=== PATIENT | male | born 1960 | race Caucasian/White ===

== ENCOUNTER 2017-10-27 09:45 | Emergency (ER) | payer SELFPAY ==
[2017-10-27 10:21] LABS: ADD MAN DIFF? NO
[2017-10-27 10:25] LABS: BASO # 0.1 x10^3/uL (0.0-0.2); BASO % 1 % (0-3); EOS # 0.3 x10^3/uL (0.0-0.7); EOS % 3 % (0-3); HEMATOCRIT 44.8 % (39.0-53.0); HEMOGLOBIN 15.4 g/dL (13.0-17.5); LYMPH # 2.9 x10^3/uL (1.0-4.8); LYMPH % 24 % (24-48); MEAN CORPUSCULAR HEMOGLOBIN 31 pg (25-35); MEAN CORPUSCULAR HGB CONC 34 g/dL (31-37); MEAN CORPUSCULAR VOLUME 90 fL (79-100); MONO # 0.6 x10^3/uL (0.0-1.1); MONO % 5 % (0-9); NEUT % 67 % (31-73); PLATELET COUNT 234 x10^3/uL (140-400); RED BLOOD COUNT 4.99 x10^6/uL (4.30-5.70); RED CELL DISTRIBUTION WIDTH 12.8 % (11.5-14.5); WHITE BLOOD COUNT 11.9 x10^3/uL (4.0-11.0)
[2017-10-27] MEDS: LABETALOL 20 MG/4 ML DISP.SYRIN. IVP ×2 (10:39)
[2017-10-27 10:43] LABS: INR 0.9 (0.8-1.1)
[2017-10-27 10:48] LABS: ANION GAP 11 (6-14); BLOOD UREA NITROGEN 22 mg/dL (8-26); BUN/CREATININE RATIO 20 (6-20); CALCIUM 9.2 mg/dL (8.5-10.1); CARBON DIOXIDE 28 mmol/L (21-32); CHLORIDE 101 mmol/L (98-107); CREATININE 1.1 mg/dL (0.7-1.3); GFR 69.2; GLUCOSE 159 mg/dL (70-99); POTASSIUM 4.1 mmol/L (3.5-5.1); SODIUM 140 mmol/L (136-145)
[2017-10-27 10:54] LABS: ALBUMIN 3.7 g/dL (3.4-5.0); ALBUMIN/GLOBULIN RATIO 1.1 (1.0-1.7); ALK PHOS 85 U/L (46-116); ALT (SGPT) 39 U/L (16-63); AST (SGOT) 23 U/L (15-37); LIPASE 419 U/L (73-393); TOTAL BILIRUBIN 0.4 mg/dL (0.2-1.0); TOTAL PROTEIN 7.2 g/dL (6.4-8.2)
[2017-10-27 10:55] LABS: TROPONINI < 0.017 ng/mL (0.000-0.055)
[2017-10-27 11:01] LABS: CKMB INDEX 1.9 % (0-4); CKMB MASS 2.2 ng/mL (0.0-3.6); CREATINE KINASE 114 U/L (39-308)
[2017-10-27 11:10] LABS: BILIRUBIN,URINE NEGATIVE (NEG); CLARITY,URINE CLEAR; COLOR,URINE YELLOW; GLUCOSE,URINE NEGATIVE (NEG); NITRITE,URINE NEGATIVE (NEG); PH,URINE 7.5; PROTEIN,URINE 30 mg/dL (NEG-TRACE); UROBILINOGEN,URINE 0.2 mg/dL (0.2 mg/dL)
[2017-10-27 11:18] LABS: BACTERIA,URINE 0 /HPF (0-FEW); RBC,URINE 0 /HPF (0-2); SQUAMOUS EPITHELIAL CELL,UR FEW /LPF; WBC,URINE 0 /HPF (0-4)
[2017-10-27] MEDS: HYDROcodone/APAP 5/325MG 1 TAB TABLET PO ×2 (11:26)
== END 2017-10-27 12:28 | disposition home or self-care (01) ==
LOC: ER 09:45
DX: I10 Essential (primary) hypertension (principal); R51 Headache; E78.00 Pure hypercholesterolemia, unspecified; E11.9 Type 2 diabetes mellitus without complications; F12.10 Cannabis abuse, uncomplicated; F10.10 Alcohol abuse, uncomplicated
CPT/HCPCS: 36415; 70450; 71045; 80053; 81001; 82553; 83690; 84484; 85025; 85610; 93005; 96374; 99285-25; J3490

== ENCOUNTER → 2022-01-07 | Outpatient (CLI) | payer OTHER ==
[2017-10-27 12:15] VITALS: BP 163/87
[~2022-01-07] MED LIST: HYDR12.58 PO; LISI-130 PO; METF500T16 PO
--- NOTE | 2022-01-07 11:59 | RAD ---
EXAM: XR HIP (WITH OR WITHOUT PELVIS) 1 VIEW, XR LUMBAR SPINE 2-3V 01/07/2022 10:57 AM CLINICAL INDICATION: Low back pain, numbness down lower extremities. COMPARISON: None TECHNIQUE: AP view of the pelvis and frog-leg lateral views of the right and left hip. AP and latera l view of the lumbar spine. FINDINGS: Pelvis: No acute fracture. Alignment is normal. There is moderate to severe right and mild left hip j oint space narrowing. Large acetabular and femoral head osteophytes bilaterally. There are small subc hondral cysts, greater on the right hip. The pubic symphysis and sacroiliac joints are normal. Lumbar spine: There 5 nonrib-bearing lumbar vertebral bodies. No acute fracture. Alignment is normal. Mild disc space narrowing throughout the lumbar spine. There are prominent anterior and lateral oste ophytes throughout the lower thoracic and lumbar spine. IMPRESSION: 1. Moderate to severe right and moderate left hip osteoarthrosis. 2. Mild to moderate degenerative disc disease of the lumbar spine. Electronically signed by: Alka Gusman MD (01/07/2022 11:57 AM) [id number]
== END ==
LOC: RAD 10:27
PROVIDERS: ATTEND Anesthesiology Pain Medicine
DX: Z02.71 Encounter for disability determination (principal); M16.0 Bilateral primary osteoarthritis of hip; M51.36 Other intervertebral disc degeneration, lumbar region; M25.78 Osteophyte, vertebrae; M48.061 Spinal stenosis, lumbar region without neurogenic claudication
CPT/HCPCS: 72100; 73521